=== PATIENT | male | born 1975 | race African-American/Black ===

== ENCOUNTER 2018-06-17 18:25 | Emergency (ER) | payer MEDICARE ==
[~2018-06-17] VITALS: Ht 190.5 cm; Wt 90.0 kg
[~2018-06-17 18:25] MED LIST: AMOXICILLIN500 MG PO; ANUCORT-HC25 MG RE; ANUSOL HC EX; BACLOFEN10 MG OR; BENZONATATE200 MG PO; COLACE100 MG OR; HYTONE2.5 % EX; LIDOCAINE VISC20 ML EX; LISINOPRIL20 MG OR; LORTAB 1010 MG PO; METAMUCIL58.6 % OR; OMEPRAZOLE20 M1 PO; OMEPRAZOLE20 MG PO; PERCOCET 5/325M1 TAB OR; PREDNISONE20 MG OR; PREP H HC1 % EX; PREPARATIO H RE; PREVACID30 M2 OR; PRILOSEC20 MG PO; REGLAN10 MG OR; TENORMIN PO; THORAZINE25 MG OR; TYLENOL500 MG OR; ZANTAC150 M1 OR; [UNRECOGNIZED DRUG - OTHER]
[2018-06-17] MEDS ORDERED: TORADOL PO (18:52)
[2018-06-17] MEDS ORDERED: FLEXERIL PO (18:52)
[2018-06-17 20:00] VITALS: BP 144/88
== END 2018-06-17 20:00 | disposition home or self-care (01) ==
LOC: ED 18:25
DX: S20.212A Contusion of left front wall of thorax, initial encounter (principal); S20.211A Contusion of right front wall of thorax, initial encounter; W17.89XA Other fall from one level to another, initial encounter; Y92.007 Garden or yard of unspecified non-institutional (private) residence as the place of occurrence of the external cause

== ENCOUNTER 2021-02-21 18:53 | Emergency (ER) | payer MEDICARE ==
[~2021-02-21] VITALS: Ht 188 cm; Wt 68.0 kg
[~2021-02-21 18:53] MED LIST changes: +FLEXERIL PO; +TORADOL PO
[2021-02-21 23:17] VITALS: BP 141/88
== END 2021-02-21 23:22 | disposition home or self-care (01) ==
LOC: ED 18:53
DX: S93.511A Sprain of interphalangeal joint of right great toe, initial encounter (principal); I10 Essential (primary) hypertension; K21.9 Gastro-esophageal reflux disease without esophagitis; X58.XXXA Exposure to other specified factors, initial encounter